=== PATIENT | male | born 1950 | race Caucasian/White ===

== ENCOUNTER → 2025-05-09 09:18 | Outpatient (REF) | payer MEDICARE, OTHER, SELFPAY | LOC: RAD 09:18 | PROVIDERS: ATTENDING PHYSICIAN Specialist; FAMILY PHYSICIAN Family Medicine | DX: N18.32 Chronic kidney disease, stage 3b (principal) | CPT/HCPCS: 76770 ==

== ENCOUNTER 2025-08-09 07:38 | Inpatient (IN) | payer MEDICARE, OTHER, SELFPAY ==
[2025-08-07 16:40] VITALS: BP 204/82
[2025-08-07 18:08] LABS: ALT (SGPT) 18 U/L (0-50); AST (SGOT) 30 U/L (17-59); Albumin 4.7 g/dl (3.5-5.0); Alkaline Phosphatase 61 U/L (38-126); Blood Urea Nitrogen 39 mg/dl (9-20); Calcium 8.9 mg/dl (8.4-10.2); Carbon Dioxide 22 mmol/L (22-30); Chloride 108 mmol/L (98-107); Glucose 118 mg/dl (70-99); Potassium 4.2 mmol/L (3.5-5.1); Sodium 139 mmol/L (135-145); Total Protein 7.6 g/dl (6.3-8.2); eGFR 32.42
--- NOTE | 2025-08-07 18:09 | ED.GENMED ---
History of Present Illness
<Jon Orozco PA-C - Last Filed: 08/07/25 22:00>
General
Chief Complaint: Urinary Symptoms
Time Seen by Provider: 08/07/25 17:22
History of Present Illness
History of Present Illness:
75-year-old male with history of bladder cancer currently in remission (Follows with [facility]) presents for evaluation of hematuria and urinary retention. He underwent a cystoscopy today, I am unable to see any documented results of this
through [facility] chart access. He has a history of MDS with thrombocytopenia, blood thinners.
Review of Systems
<Jon Orozco PA-C - Last Filed: 08/07/25 22:00>
Review of Systems
Allergies reviewed?: Yes
All Other Systems: ROS reviewed and negative except as documented in HPI and ROS
Phy Exam
<Jon Orozco PA-C - Last Filed: 08/07/25 22:00>
Physical Exam
Physical Exam:
GEN: Uncomfortable
HEENT: Oral mucosa moist, no scleral icterus
Cardiac: Regular rate
Lung: No respiratory distress, no tachypnea
MSK: No gross deformity or injuries
Skin: Good color, no pallor or jaundice, no rashes
Neuro: AO x3, moves all extremities freely
Psych: Calm, cooperative
Course
<Jon Orozco PA-C - Last Filed: 08/07/25 22:00>
Orders/Labs/Results
Orders:
Orders
08/07/25 Dinner
Regular
At Your Request: Full Participation
08/07/25 17:39
CBI- Treatment PRN
Solution: NSS
08/07/25 17:47
Type+Screen Urgent
Complete Blood Count/With Diff Urgent
Comprehensive Metabolic Panel Urgent
Manual Differential Urgent
08/07/25 19:34
Admit/Transfer Patient As Directed
Co-Sign Provider:
Level of Care: Observation services
Assign to:: Medical/Surgical
Physician / Group: Heather
Diagnosis: Hematuria
Code Status As Directed
Resuscitation Status: Full Code
PRN Pain Medication Management As Directed
May give lesser potent ordered pain med per pt: Yes
preference::
Protocol:: Medication orders for pain may be administered in a
manner that supports deferring to patient preference
when the pt is:
- Requesting an ordered lesser potent pain medication.
Least to most potent pain medications are defined
as: acetaminophen < NSAID < tramadol < opioids
(morphine, oxycodone, hydromorphone).
- Requesting a lesser dose of the same medication IF
ORDERED.
- Requesting a less intrusive route of administration
if both routes are prescribed by the provider (PO <
IV).
08/07/25 21:28
Acetaminophen [Tylenol] 650 mg PO Q4HPRN PRN
Bisacodyl [Dulcolax] 10 mg RECTAL [id number] PRN
Docusate W/Senna [Senokot-S] 1 tablet PO BIDPRN PRN
Ondansetron Injectable [Zofran] 4 mg IV Q6HPRN PRN
Oxycodone [Roxicodone] 5 mg PO Q4HPRN PRN
Polyethylene Glycol Powder [Miralax] 17 grams PO DAILYPRN PRN
Valsartan [Diovan] 160 mg PO BID
08/07/25 21:28
UROLOGY CONSULT Routine
Consulting Provider: Bassem Ghotra
Was physician already notified: Yes
Activity As Directed
Activity Level: As Tolerated
Pneumatic Compression Sleeves As Directed
Type: Knee high
Vital Signs As Directed
Frequency: Per unit guidelines
Pulse Ox/spot Check [RESP] Routine
Quantity: 1
DX Deep Vein Thrombosis Video Routine
08/08/25 06:00
Basic Metabolic Panel IN AM
Complete Blood Count/No Diff IN AM
Magnesium IN AM
08/08/25 08:00
Loratadine [Claritin] 10 mg PO DAILY
Rosuvastatin Calcium [Crestor] 40 mg PO DAILY
Abnormal Lab Results
08/07/25
17:47
RBC 3.06 L 10^6/uL
(4.70-6.10)
Hgb 8.2 L g/dL
(13.0-18.0)
Hct 25.8 L %
(39.0-52.0)
MCH 26.8 L pg
(27.0-31.0)
MCHC 31.8 L g/dL
(33.0-37.0)
RDW 18.2 H %
(11.5-14.5)
Plt Count 49 L 10^3/uL
(130-400)
Monocytes (Manual) 25 H %
(2-9)
Chloride 108 H mmol/L
(98-107)
BUN 39 H mg/dl
(9-20)
Creatinine 2.1 H mg/dL
(0.7-1.3)
Glucose 118 H mg/dl
(70-99)
08/07/25 17:47
08/07/25 17:47
Vital Signs
Initial and Last Documented VS:
Initial Vital Signs
Temp Pulse Resp BP Pulse Ox
97.7 F 84 18 204/82 100
08/07/25 16:40 08/07/25 16:40 08/07/25 16:40 08/07/25 16:40 08/07/25 16:40
Last Documented Vital Signs
Temp Pulse Resp BP Pulse Ox
97.7 F 65 16 175/76 100
08/07/25 21:15 08/07/25 21:15 08/07/25 21:15 08/07/25 21:15 08/07/25 21:15
<Artie Lazcano, DO - Last Filed: 08/07/25 18:16>
Orders/Labs/Results
Orders:
Orders
08/07/25 Dinner
Regular
At Your Request: Full Participation
08/07/25 17:39
CBI- Treatment PRN
Solution: NSS
08/07/25 17:47
Type+Screen Urgent
Complete Blood Count/With Diff Urgent
Comprehensive Metabolic Panel Urgent
Manual Differential Urgent
08/07/25 19:34
Admit/Transfer Patient As Directed
Co-Sign Provider:
Level of Care: Observation services
Assign to:: Medical/Surgical
Physician / Group: Heather
Diagnosis: Hematuria
Code Status As Directed
Resuscitation Status: Full Code
PRN Pain Medication Management As Directed
May give lesser potent ordered pain med per pt: Yes
preference::
Protocol:: Medication orders for pain may be administered in a
manner that supports deferring to patient preference
when the pt is:
- Requesting an ordered lesser potent pain medication.
Least to most potent pain medications are defined
as: acetaminophen < NSAID < tramadol < opioids
(morphine, oxycodone, hydromorphone).
- Requesting a lesser dose of the same medication IF
ORDERED.
- Requesting a less intrusive route of administration
if both routes are prescribed by the provider (PO <
IV).
08/07/25 21:28
Acetaminophen [Tylenol] 650 mg PO Q4HPRN PRN
Bisacodyl [Dulcolax] 10 mg RECTAL [id number] PRN
Docusate W/Senna [Senokot-S] 1 tablet PO BIDPRN PRN
Ondansetron Injectable [Zofran] 4 mg IV Q6HPRN PRN
Oxycodone [Roxicodone] 5 mg PO Q4HPRN PRN
Polyethylene Glycol Powder [Miralax] 17 grams PO DAILYPRN PRN
Valsartan [Diovan] 160 mg PO BID
08/07/25 21:28
UROLOGY CONSULT Routine
Consulting Provider: Bassem Ghotra
Was physician already notified: Yes
Activity As Directed
Activity Level: As Tolerated
Pneumatic Compression Sleeves As Directed
Type: Knee high
Vital Signs As Directed
Frequency: Per unit guidelines
Pulse Ox/spot Check [RESP] Routine
Quantity: 1
DX Deep Vein Thrombosis Video Routine
08/08/25 06:00
Basic Metabolic Panel IN AM
Complete Blood Count/No Diff IN AM
Magnesium IN AM
08/08/25 08:00
Loratadine [Claritin] 10 mg PO DAILY
Rosuvastatin Calcium [Crestor] 40 mg PO DAILY
Abnormal Lab Results
08/07/25
17:47
RBC 3.06 L 10^6/uL
(4.70-6.10)
Hgb 8.2 L g/dL
(13.0-18.0)
Hct 25.8 L %
(39.0-52.0)
MCH 26.8 L pg
(27.0-31.0)
MCHC 31.8 L g/dL
(33.0-37.0)
RDW 18.2 H %
(11.5-14.5)
Plt Count 49 L 10^3/uL
(130-400)
Monocytes (Manual) 25 H %
(2-9)
Chloride 108 H mmol/L
(98-107)
BUN 39 H mg/dl
(9-20)
Creatinine 2.1 H mg/dL
(0.7-1.3)
Glucose 118 H mg/dl
(70-99)
08/07/25 17:47
08/07/25 17:47
Vital Signs
Initial and Last Documented VS:
Initial Vital Signs
Temp Pulse Resp BP Pulse Ox
97.7 F 84 18 204/82 100
08/07/25 16:40 08/07/25 16:40 08/07/25 16:40 08/07/25 16:40 08/07/25 16:40
Last Documented Vital Signs
Temp Pulse Resp BP Pulse Ox
97.7 F 65 16 175/76 100
08/07/25 21:15 08/07/25 21:15 08/07/25 21:15 08/07/25 21:15 08/07/25 21:15
<Jon Orozco PA-C - Last Filed: 08/07/25 22:00>
MDM/Problems Addressed
MDM/Problems Addressed:
Due to his known thrombocytopenia we will start him on CBI and admitted to the hospital service for urologic evaluation
<Jon Orozco PA-C - Last Filed: 08/07/25 22:00>
*Pulse Oximetry
SaO2: 100
Oxygen Mode of Delivery: Room air
Patient hypoxic: no
*Critical Care Note
Total Time (30-74mins, 75-104mins- exclusive of procedures): Not Applicable
ED Attending Note
<Jon Orozco PA-C - Last Filed: 08/07/25 22:00>
-
Portions of this chart may have been created with voice recognition software.� Occasional wrong word or��sound alike� substitutions may have occurred due to the inherent limitations of voice recognition software.
<Artie Lazcano DO - Last Filed: 08/07/25 18:16>
ED Attending Note
Patient seen and examined by attending physician: Yes
I performed the substantive portion of visit, reviewed & personally made and approve the management plan that is documented in note by myself or PAUL.: Yes
ED Attending Note:
75-year-old male bladder cancer MDS followed [facility] previously followed at [facility] had a cystoscopy today now is in clot retention plan will be labs three-way with CBI
Discharge Plan
Departure
Patient Disposition: Admit
Date of Disposition: 08/07/25
Time of Disposition: 18:56
Admit to: Med/Surg
Presentation/result/management discussed w/ accepting MD/DO: Hospitalist
Discharge Problem:
Clot retention of urine
Interventions
Interventions:
*Risk Screen - Suicide Last Done: 08/07/25 16:40
*General Assessment Last Done: 08/07/25 16:40
*Neglect/Abuse Screening Last Done: 08/07/25 19:20
*ED- Fall Risk Assessment Last Done: 08/07/25 19:20
*ED COVID-19 Vaccine History Last Done: 08/07/25 19:20
*ED Influenza Vaccine History Last Done: 08/07/25 19:20
*Nursing Disposition Last Done: 08/07/25 21:26
ED-Male Genitourinary Assessment Last Done: 08/07/25 18:34
Discharge Date and Time
Discharge Date/Time: 08/07/25 21:29
[2025-08-07 18:38] LABS: Hematocrit 25.8 % (39.0-52.0); Hemoglobin 8.2 g/dL (13.0-18.0); Mean Corp Hgb Conc. 31.8 g/dL (33.0-37.0); Mean Corpuscular Volume 84.3 fL (80.0-94.0); Platelet Count 49 10^3/uL (130-400); Red Cell Dist. Width 18.2 % (11.5-14.5)
[2025-08-07 18:39] LABS: Absolute Neutrophils -Man Diff 3.4 10^3/uL (1.4-6.5); Normal RBC Morphology No; Platelets Checked Yes
[2025-08-07 18:40] LABS: Anisocytosis 1+; Hypochromasia 1+; Macrocytosis 1+
[2025-08-07 18:41] LABS: Microcytosis 1+
[2025-08-07 18:43] LABS: Stomatocytes Occasional; Total Cells Counted 100
--- NOTE | 2025-08-07 19:09 | HPS.HSE ---
Family Physician
-
Family Physician: Bibiana George
Chief Complaint
-
Hematuria
History of Present Illness
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
Patient with history of bladder cancer on routine surveillance every 6 months. He has MDS with thrombocytopenia. He did receive 2 units of platelets prior to procedure 2 days ago due to his blood counts being in the 20s. He reported that he
underwent routine cystoscopy and prior to cystoscopy was not having any symptoms. After cystoscopy he returned home and started having difficulty with urination. He noticed that he was passing clots and then some blood. He reported pelvic
discomfort as well as dysuria. Denies having any fevers or chills. Denies any nausea or vomiting.
Patient has had several cystoscopies in the past and has had recurrent episodes of hematuria requiring continuous bladder irrigation in the past.
In the emergency department was hypertensive to 200/80, pulse rate of 84 and he was satting 100% on room air. He was afebrile. CBC notable for hemoglobin of 8.2, platelet count 49, electrolytes were all in normal range. BUN and creatinine were 39
and 2.1 (unknown baseline) glucose 118.
Medical History
Past Medical History
Past Medical History: Reports CAD, Cancer (Bladder cancer 2019, in remission, chronic thrombocytopenia secondary to MDS), HTN, Hypercholesterolemia and Psychiatric (Anxiety)
Past Surgical History: Reports Appendectomy and Urological (TURBT,)
Social History
Tobacco: Non-smoker
Alcohol: None
Drug: None
Personal:
Living: With Family
Employment: Retired
Family History
Family History: Not pertinent
Allergies / Home Medications
Allergies reflects when Allergies were last updated in [employer].
Home Medications with original date entered in [employer]
Allergy/Medication List:
Allergies
Allergy/AdvReac Type Severity Reaction Status Date / Time
lisinopril Allergy Unknown Verified 08/07/25 16:42
Valsartan 160 MG 1 tablet Orally twice a day Active
Gladis Allergy 180 MG 1 tablet Swallow whole with water; do not take with fruit juices. Orally Once a day Active
Fexofenadine HCl 180 MG 1 tablet Swallow whole with water; do not take with fruit juices. Orally Once a day Not-Taking/PRN
Tamsulosin HCl 0.4 MG 1 capsule Orally Once a day Not-Taking/PRN
Nasacort AQ 55 mcg nasal 2 sprays daily Active
Other Misc Opcon A Eye Allergy - 1-2 drops in each eye daily Active
Cranberry Extract 250 MG 2 tablets (500mg) Orally twice daily Active
Rosuvastatin Calcium 40 MG 1 tablet Orally Once a day Active
Famotidine 40 MG 1 tablet at bedtime Orally Once a day Pepcid Not-Taking/PRN
Pumpkin Seed Oil - as directed Orally 1000mg 2 caps in am and 1 cap with dinner Active
Review of Systems
-
History Source: Patient
Constitutional: Reports No Symptoms
EENT: Reports No Symptoms
Respiratory: Reports No Symptoms
Cardiac: Reports No Symptoms
Abdomen/GI: Reports No Symptoms
: Reports Dysuria and Bleeding (Passing clots)
Musculoskeletal: Reports No Symptoms
Skin: Reports No Symptoms
Neurological: Reports No Symptoms
Endocrine: Reports No Symptoms
Hematologic/Lymphatic: Reports No Symptoms
Psych: Reports No Symptoms
Physical Exam
Vital Signs
Vital Signs
Temp Pulse Resp BP Pulse Ox
97.7 F 84 18 204/82 100
08/07/25 16:40 08/07/25 16:40 08/07/25 16:40 08/07/25 16:40 08/07/25 18:09
Physical Exam
General: Well Developed, Well Nourished and No Apparent Distress
HEENT: NormoCephalic, Moist mucous membranes and Atraumatic
Respiratory: Clear
Cardiac: S1/S2 and Regular Rhythm; No Murmur or Rub
GI: Soft, Non Tender, Non Distended and Normal Bowel Sounds; No Organomegaly
Rectal: Deferred by Provider
Genito-urinary: Bloody Urine and Continuous Bladder Irrigation
Musculoskeletal: No Clubbing, No Cyanosis and No Edema
Skin: No Rash
Neuro: AO x 3 and Nonfocal/grossly intact
Hematologic/Lymphatic: No Lymphadenopathy
Laboratory Results
-
08/07/25 17:47
08/07/25 17:47
Laboratory Results
Total Bilirubin 0.8 mg/dl (0.2-1.3) 08/07/25 17:47
AST 30 U/L (17-59) 08/07/25 17:47
ALT 18 U/L (0-50) 08/07/25 17:47
Alkaline Phosphatase 61 U/L (38-126) 08/07/25 17:47
Data Reviewed
-
Lab Data: Labs Reviewed by me
Old Records: Reviewed
Impression/Plan
-
IMPRESSION:
75-year-old with history of bladder cancer currently in remission and on getting urine cystoscopy, MDS who is transfusion dependent for thrombocytopenia as well as anemia, hypertension and hyperlipidemia presents to the emergency department
following a routine 6-month cystoscopy with post procedure clot retention. He denies any fevers or chills. He denies any flank pain. Patient labs shows a stable hemoglobin compared to prior in June. He is also shows a stable creatinine of 2.1.
His platelet count is 49. He currently is on continuous bladder irrigation with punch colored output.
PLAN:
Hematuria -postprocedure complicated by history of thrombocytopenia, patient is not on any thinners or antiplatelet agents. He is currently comfortable on CBI
-Admit to MedSurg observation
-Monitor output
-Obtain urine culture and UA afebrile
-No thinners
-Urology consulted with
Thrombocytopenia -secondary to MDS with recent transfusion of platelets preprocedure for platelet count of around 26. Currently blood count is 49.
-Type and screen
-Transfuse for platelets less than 40 if still having hematuria
-Transfuse hemoglobin less than 7
CKD -creatinine 2.1 is at his baseline
-Follow-up creatinine
-Avoid nephrotoxins
Hypertension
-Well-controlled on valsartan, continue
-Continue rosuvastatin
DVT prophylaxis�SCDs
CODE STATUS�full code
[2025-08-07 19:25] VITALS: BP 149/76
[2025-08-07 19:28] VITALS: BMI 24.4
[2025-08-07 20:00] VITALS: BP 149/58
[2025-08-07 20:47] VITALS: BP 148/58
[2025-08-07 21:15] VITALS: BP 175/76; BMI 23.2
--- NOTE | 2025-08-07 22:00 | PTCARENOTE ---
Pt transported from ED to 3W via stretcher. Pt independent from stretcher to bed. AAOX3, vitals stable, oriented to room and call clark within reach.
[2025-08-07] MEDS: DIOVAN 160 MG PO (22:45)
[2025-08-07 23:00] VITALS: BP 154/67
[2025-08-08] VITALS (9 sets, daily range): BP systolic 129–165; BP diastolic 57–68
[2025-08-08] MEDS: ROXICODONE 5 MG PO ×2 (03:56→07:57)
[2025-08-08 06:33] LABS: Hematocrit 23.1 % (39.0-52.0); Hemoglobin 7.3 g/dL (13.0-18.0); Mean Corp Hgb Conc. 31.6 g/dL (33.0-37.0); Mean Corpuscular Volume 84.0 fL (80.0-94.0); Platelet Count 39 10^3/uL (130-400); Red Cell Dist. Width 18.4 % (11.5-14.5)
[2025-08-08 06:49] LABS: Blood Urea Nitrogen 32 mg/dl (9-20); Calcium 8.7 mg/dl (8.4-10.2); Carbon Dioxide 23 mmol/L (22-30); Chloride 111 mmol/L (98-107); Estimated Creatinine Clearance 34 ml/min; Glucose 103 mg/dl (70-99); Magnesium 1.8 mg/dl (1.6-2.3); Potassium 4.1 mmol/L (3.5-5.1); Sodium 141 mmol/L (135-145); eGFR 36.56
[2025-08-08] MEDS: CLARITIN 10 MG PO (07:56)
[2025-08-08] MEDS: DIOVAN 160 MG PO ×2 (07:56→20:35)
[2025-08-08] MEDS: CRESTOR 40 MG PO (07:56)
--- NOTE | 2025-08-08 09:44 | W.PN.HOSP.TC ---
Addendum entered and electronically signed by Chay Sagastume DO 08/08/25 10:04:
I reviewed records from [facility] via remote [facility] access.
Hemoglobin was noted to be 9.2 on 08/06 morning with subsequent hemoglobin down to 7.2 later the same day.
Platelet count was noted to be 36,000 on 08/06.
Today hemoglobin is 7.3, platelet count 39,000.
Will transfuse 1 unit of PRBCs, 1 unit of platelets. Patient agreeable.
Acute blood loss anemia in the setting of chronic anemia due to MDS. Acute blood loss anemia due to gross hematuria.
Original Note:
Today's Communication/Plan
-
CBI
Urology consult
Check previous blood work from [facility]
Assessment / Plan
Assessment / Plan
Gen-AAOx3, NAD
HEENT-NC, AT, anicteric, clear oral mm
Neck-supple
CV-reg, no M, +S1/S2
Lungs-clear B/L
Abd-soft, NT, ND
Ext-no edema
Musculoskeletal-no cyanosis, clubbing
Skin-warm and dry
Neuro-grossly non-focal
Psych-calm, cooperative
Gross hematuria -postprocedural clot retention complicated by thrombocytopenia exacerbated bleeding.
Patient underwent cystoscopy 08/07 at [facility], Dr. Lazaro.
Currently getting CBI as per urology.
MDS with anemia, thrombocytopenia -will try to access [facility] chart to review previous labs. Anticipate platelet transfusion given counts below 50,000 in light of hematuria.
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
CKD 3b -creatinine 1.9, suspect at baseline. Will try to review labs from [facility].
Essential hypertension -pressures are elevated, recheck after valsartan.
Hx bladder cancer -diagnosed and treated in 2019.
CAD -stable.
Hyperlipidemia -rosuvastatin.
Full code
Anticipated Discharge: > 48 hours
Subjective/Interval History
-
Date of Service: August 08, 2025
Patient seen and examined, no complaints.
Objective Data
-
Labs:
Laboratory Results
08/08/25
06:13
WBC 9.8
Hgb 7.3 L
Hct 23.1 L
Plt Count 39 L D
Sodium 141
Potassium 4.1
Chloride 111 H
Carbon Dioxide 23
BUN 32 H
Creatinine 1.9 H
Glucose 103 H
Calcium 8.7
Vital Signs:
Vital Signs
Temp Pulse Resp BP Pulse Ox
97.7 F 59 16 165/68 100
08/08/25 07:20 08/08/25 07:56 08/08/25 07:20 08/08/25 07:56 08/08/25 07:20
I&O
08/07/25 08/08/25 08/09/25
06:59 06:59 06:59
Output Total 900 / 900 1000 / 1000
Balance -900 / -900 -1000 / -1000
Review of Systems
-
History Source: Patient
All other systems: Reviewed and negative
--- NOTE | 2025-08-08 10:29 | CM ---
Patient seen at bedside
IA Completed
AMARAL form explained & signed. In chart
Patient lives with in 2 story home, 12 steps to bed/bath, powder room 1st floor
PLOF: independent, no assistive device
DME: Walker, wheelchair, cane
Denies VN, has had outpatient therapy in past
pcp: Bibiana George
Pharmacy: [facility], [address], [place]
PLAN: home, when stable, CM to follow for VN needs
--- NOTE | 2025-08-08 13:39 | PTCARENOTE ---
Message received from Urologist this shift with orders to switch out patient's 3 way jacinto cath from [address] See flowchart. Patient tolerated well - draining punch tinged urine. Patient reports relief after new jacinto is
irrigated and in place. Multiple clots irrigated out of new jacinto. Plan of care ongoing.
--- NOTE | 2025-08-08 17:15 | CONS.URO ---
Consultation
-
Date/Time Consultation Performed: 0800 08/08
Performing Provider: Jurgenfer
Reason for Consultation: Hematuria
Medical History
History of Present Illness
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
Patient with history of bladder cancer on routine surveillance every 6 months. He has MDS with thrombocytopenia. He did receive 2 units of platelets prior to cystoscopy 2 days ago due to his blood counts being in the 20s. He reported that he
underwent routine cystoscopy and prior to cystoscopy was not having any symptoms. After cystoscopy he returned home and started having difficulty with urination. He noticed that he was passing clots and then some blood. He reported pelvic
discomfort as well as dysuria. Denies having any fevers or chills. Denies any nausea or vomiting.
Patient has had several cystoscopies in the past and has had recurrent episodes of hematuria requiring continuous bladder irrigation in the past at [facility]
In the emergency department was hypertensive to 200/80, pulse rate of 84 and he was satting 100% on room air. He was afebrile. CBC notable for hemoglobin of 8.2, platelet count 49, electrolytes were all in normal range. BUN and creatinine were 39
and 2.1 (unknown baseline) glucose 118.
Past Medical History
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
Past Surgical History: Other (TURBT)
Social History
Alcohol: None
Drug: None
Family History
Family History: Reviewed & Not Pertinent
Allergies/Home Medications
Allergies
Allergy/AdvReac Type Severity Reaction Status Date / Time
lisinopril Allergy Unknown Verified 08/07/25 16:42
Home Medications
�Medication �Instructions �Recorded �Confirmed �Type
[employer] Capsule 1 cap PO BID Gastrointestinal Issue 08/07/25 08/07/25 History
cranberry 500 mg capsule 500 mg PO DAILY Supplement 08/07/25 08/07/25 History
fexofenadine 180 mg tablet 180 mg PO DAILY Allergies 08/07/25 08/07/25 History
pumpkin seed extract 500 mg capsule 1,000 mg PO BID Supplement 08/07/25 08/07/25 History
rosuvastatin 40 mg tablet (Crestor) 40 mg PO DAILY cholesterol 08/07/25 08/07/25 History
valsartan 160 mg tablet 160 mg PO BID Blood Pressure 08/07/25 08/07/25 History
Physical Exam
Vital Signs
Vital Signs
Temp Pulse Resp BP Pulse Ox
98.1 F 61 16 133/57 98
08/08/25 15:00 08/08/25 15:00 08/08/25 15:00 08/08/25 15:00 08/08/25 15:00
Lab / Testing Results
Laboratory Results
08/08/25 06:13
08/08/25 06:13
Physical Exam
General: Well Developed, Well Nourished and No Apparent Distress
GI: Soft
Genito-urinary: No Costovertebral Tend, Bloody Urine and Moreno Catheter
Neuro: AO x 3
Psych: Calm and Intact Judgement
Assessment / Plan
-
75M with chronic thrombocytopenia
History of bladder cancer managed at [facility]
History of hospital admissions for hematuria following his surveillance cystoscopy, admitted for hematuria and clot retention after surveillance cystoscopy
- Transfuse blood and platelets as needed
- Continue CBI, upsize catheter to 22Fr 3 way
- Hand irrigate PRN
- Trend hematuria. May need procedure intervention if no improvement
[2025-08-09 07:00] VITALS: BP 135/57
[2025-08-09 07:09] LABS: Hematocrit 24.8 % (39.0-52.0); Hemoglobin 7.9 g/dL (13.0-18.0); Mean Corp Hgb Conc. 31.9 g/dL (33.0-37.0); Mean Corpuscular Volume 83.8 fL (80.0-94.0); Platelet Count 61 10^3/uL (130-400); Red Cell Dist. Width 18.0 % (11.5-14.5)
[2025-08-09] MEDS: CRESTOR 40 MG PO (07:42)
[2025-08-09] MEDS: CLARITIN 10 MG PO (07:42)
[2025-08-09] MEDS: DIOVAN 160 MG PO ×2 (07:42→20:57)
[2025-08-09 08:07] LABS: Blood Urea Nitrogen 30 mg/dl (9-20); Calcium 8.9 mg/dl (8.4-10.2); Carbon Dioxide 24 mmol/L (22-30); Chloride 111 mmol/L (98-107); Estimated Creatinine Clearance 32 ml/min; Glucose 95 mg/dl (70-99); Potassium 4.3 mmol/L (3.5-5.1); Sodium 141 mmol/L (135-145); eGFR 34.38
[2025-08-09 08:33] LABS: Absolute Neutrophils -Man Diff 3.2 10^3/uL (1.4-6.5)
[2025-08-09 08:34] LABS: Normal RBC Morphology Yes; Platelets Checked Yes; Total Cells Counted 100
--- NOTE | 2025-08-09 08:55 | W.PN.HOSP.TC ---
Today's Communication/Plan
-
Continue current care
Assessment / Plan
Assessment / Plan
Gen-AAOx3, NAD
HEENT-NC, AT, anicteric, clear oral mm
Neck-supple
CV-reg, no M, +S1/S2
Lungs-clear B/L
Abd-soft, NT, ND
Ext-no edema
Musculoskeletal-no cyanosis, clubbing
Skin-warm and dry
Neuro-grossly non-focal
Psych-calm, cooperative
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 Acute blood loss anemia due to hematuria.
Transfused 1 unit PRBC so far, hemoglobin improved to 7.9 today. Continue to monitor.
Gross hematuria -postprocedural clot retention complicated by thrombocytopenia exacerbated bleeding.
Patient underwent cystoscopy 08/07 at [facility], Dr. Lazaro.
Currently getting CBI as per urology.
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
CKD 3b -creatinine at baseline, 2.0.
Essential hypertension -stable.
Hx bladder cancer -diagnosed and treated in 2018.
CAD -stable.
Hyperlipidemia -rosuvastatin.
Full code
Anticipated Discharge: Within 24 hours
Subjective/Interval History
-
Date of Service: August 09, 2025
Patient seen and examined, no complaints.
Objective Data
-
Labs:
Laboratory Results
08/09/25
06:46
WBC 9.6
Hgb 7.9 L
Hct 24.8 L
Plt Count 61 L D
Sodium 141
Potassium 4.3
Chloride 111 H
Carbon Dioxide 24
BUN 30 H
Creatinine 2.0 H
Glucose 95
Calcium 8.9
Vital Signs:
Vital Signs
Temp Pulse Resp BP Pulse Ox
98.1 F 59 17 135/57 98
08/09/25 07:00 08/09/25 07:42 08/09/25 07:00 08/09/25 07:42 08/09/25 07:00
I&O
08/08/25 08/09/25 08/10/25
06:59 06:59 06:59
Intake Total 496 / 496
Output Total 900 / 900 5950 / 5950 3575 / 3575
Balance -900 / -900 -5454 / -5454 -3575 / -3575
Review of Systems
-
History Source: Patient
All other systems: Reviewed and negative
--- NOTE | 2025-08-09 09:10 | W.PN.URO.CBU ---
Today's Communication / Plan
-
Trend hematuria on CBI
Assessment / Plan
-
75M with chronic thrombocytopenia
History of bladder cancer managed at [place]
History of hospital admissions for hematuria following his surveillance cystoscopy, admitted for hematuria and clot retention after surveillance cystoscopy
- Transfuse blood and platelets as needed
- Continue CBI, upsized catheter to 22Fr 3 way
- Irrigated this AM with minimal clot but persistent hematuria
- Hand irrigate PRN
- Trend hematuria. May need procedure intervention if no improvement. Per patient, prior attempts to stop bleeding with cystoscopy and fulguration were not very successful. Will prefer to avoid surgical intervention
Diagnosis
-
Date of Service: August 09, 2025
-
Patient Diagnosis:
Bladder cancer
Thrombocytopenia
Gross hematuria
Post Op Day:
Subjective
-
Some clots overnight a few times
Objective
-
Vital Signs
Temp Pulse Resp BP Pulse Ox
98.1 F 59 17 135/57 98
08/09/25 07:00 08/09/25 07:42 08/09/25 07:00 08/09/25 07:42 08/09/25 07:00
Intake and Output
08/08/25 08/09/25 08/10/25
06:59 06:59 06:59
Intake Total 496 / 496
Output Total 900 / 900 5950 / 5950 3575 / 3575
Balance -900 / -900 -5454 / -5454 -3575 / -3575
Intake:
Blood Product Amount Infused ( 496 / 496
mL)
Packed Rbc Leukoreduced Unit 250 / 250
[id number]
Pathogen Redu Plt Leukored 246 / 246
Unit [id number]
Output:
True Urine Output from CBI 900 / 900
True urine output from hand 5950 / 5950 3575 / 3575
irrigation
Laboratory Results
08/09/25 06:46
08/09/25 06:46
Physical Exam
-
General - well developed, well nourished, no acute distress
Chest - clear
Abdomen - soft, non-tender
Moreno with clear pink urine on medium CBI
Skin - warm & dry with no rash
Neuro - AOx3, no motor deficits
--- NOTE | 2025-08-09 10:40 | CM ---
Patient seen at bedside
LOC change to inpatient-IMM explained & signed. In chart
PLAN: home, when stable, CM to continue to follow, watch for VN needs
[2025-08-09 15:00] VITALS: BP 128/63
[2025-08-09 23:00] VITALS: BP 129/58
[2025-08-10 07:25] VITALS: BP 132/61
[2025-08-10 07:53] LABS: Hematocrit 23.1 % (39.0-52.0); Hemoglobin 7.4 g/dL (13.0-18.0); Mean Corp Hgb Conc. 32.0 g/dL (33.0-37.0); Mean Corpuscular Volume 83.4 fL (80.0-94.0); Platelet Count 52 10^3/uL (130-400); Red Cell Dist. Width 17.7 % (11.5-14.5)
[2025-08-10 08:15] LABS: Absolute Neutrophils -Man Diff 5.9 10^3/uL (1.4-6.5); Anisocytosis 1+; Hypochromasia 1+; Normal RBC Morphology No; Platelets Checked Yes; Total Cells Counted 100
[2025-08-10] MEDS: CLARITIN 10 MG PO (08:26)
[2025-08-10] MEDS: DIOVAN 160 MG PO ×2 (08:26→20:19)
[2025-08-10] MEDS: CRESTOR 40 MG PO (08:27)
--- NOTE | 2025-08-10 09:06 | W.PN.HOSP.TC ---
Today's Communication/Plan
-
Monitor hematuria
Bowel regimen
Monitor CBC
Assessment / Plan
Assessment / Plan
Gen-AAOx3, NAD
HEENT-NC, AT, anicteric, clear oral mm
Neck-supple
CV-reg, no M, +S1/S2
Lungs-clear B/L
Abd-soft, NT, ND
Ext-no edema
Musculoskeletal-no cyanosis, clubbing
Skin-warm and dry
Neuro-grossly non-focal
Psych-calm, cooperative
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 Acute blood loss anemia due to hematuria.
Transfused 1 unit PRBC so far, hemoglobin improved to 7.9 yesterday, 7.4 today. Monitor for now.
Gross hematuria -postprocedural clot retention complicated by thrombocytopenia exacerbated bleeding.
Patient underwent cystoscopy 08/07 at [facility], Dr. Lazaro.
Currently getting CBI as per urology.
MDS with anemia, thrombocytopenia -His video news editor/oncologist is at [facility].
Thrombocytopenia improved to 61,000 with 1 unit of platelets. Today it is 52,000. Monitor for now.
CKD 3b -creatinine at baseline, 2.0.
Constipation -bowel regimen ordered.
Essential hypertension -stable.
Hx bladder cancer -diagnosed and treated in 2018.
CAD -stable.
Hyperlipidemia -rosuvastatin.
Full code
Anticipated Discharge: 24 - 48 hours
Subjective/Interval History
-
Date of Service: August 10, 2025
Patient seen and examined. Complaining of constipation.
Objective Data
-
Labs:
Laboratory Results
08/10/25
07:05
WBC 9.9
Hgb 7.4 L
Hct 23.1 L
Plt Count 52 L
Vital Signs:
Vital Signs
Temp Pulse Resp BP Pulse Ox
98.6 F 61 17 132/61 98
08/10/25 07:25 08/10/25 08:26 08/10/25 07:25 08/10/25 08:26 08/10/25 07:25
I&O
08/09/25 08/10/25 08/11/25
06:59 06:59 06:59
Intake Total 496 / 496 940 / 940
Output Total 5950 / 5950 6625 / 6625 5050 / 5050
Balance -5454 / -5454 -5685 / -5685 -5050 / -5050
Review of Systems
-
History Source: Patient
All other systems: Reviewed and negative
--- NOTE | 2025-08-10 11:42 | CM ---
Patient seen at bedside
CBI-monitoring hematuria
PLAN: anticipate home, when stable, watch for VN needs, CM to continue to follow
--- NOTE | 2025-08-10 13:10 | W.PN.URO.CBU ---
Today's Communication / Plan
-
Trend hematuria
Continue CBI
TXA
Assessment / Plan
-
75M with chronic thrombocytopenia
History of bladder cancer managed at [facility]
History of hospital admissions for hematuria following his surveillance cystoscopy, admitted for hematuria and clot retention after surveillance cystoscopy
- Transfuse blood and platelets as needed
- Continue CBI, upsized catheter to 22Fr 3 way
- Hand irrigate PRN
- Trend hematuria
- IV tranexamic acid to help stop bleeding
- May need procedure intervention if no improvement. Per patient, prior attempts to stop bleeding with cystoscopy and fulguration were not very successful. Will prefer to avoid surgical intervention
Diagnosis
-
Date of Service: August 10, 2025
-
Patient Diagnosis:
Bladder cancer
Thrombocytopenia
Gross hematuria
Post Op Day:
Subjective
-
Persistent hematuria
Some clots
Objective
-
Vital Signs
Temp Pulse Resp BP Pulse Ox
98.6 F 61 17 132/61 98
08/10/25 07:25 08/10/25 08:26 08/10/25 07:25 08/10/25 08:26 08/10/25 10:44
Intake and Output
08/09/25 08/10/25 08/11/25
06:59 06:59 06:59
Intake Total 496 / 496 940 / 940
Output Total 5950 / 5950 6625 / 6625 5050 / 5050
Balance -5454 / -5454 -5685 / -5685 -5050 / -5050
Intake:
Oral fluids 940 / 940
Blood Product Amount Infused ( 496 / 496
mL)
Packed Rbc Leukoreduced Unit 250 / 250
[id number]
Pathogen Redu Plt Leukored 246 / 246
Unit [id number]
Output:
True Urine Output from CBI 1650 / 1650 5050 / 5050
True urine output from hand 5950 / 5950 4975 / 4975
irrigation
Laboratory Results
08/10/25 07:05
08/09/25 06:46
Physical Exam
-
General - well developed, well nourished, no acute distress
Chest - clear bilaterally
Abdomen - soft, non-tender, positive bowel sounds, no CVAT, no incisional pain or distention
Moreno with intermittent red urine on CBI
[2025-08-10] MEDS: TRANEXAMIC ACID 100 IV (14:28)
[2025-08-10 14:56] VITALS: BP 121/56
[2025-08-10] MEDS: SENOKOT-S 1 TABLET PO (20:18)
[2025-08-10 22:59] VITALS: BP 119/58
[2025-08-11] VITALS (9 sets, daily range): BP systolic 127–142; BP diastolic 53–64
[2025-08-11 08:02] LABS: Hematocrit 22.0 % (39.0-52.0); Hemoglobin 7.0 g/dL (13.0-18.0); Mean Corp Hgb Conc. 31.8 g/dL (33.0-37.0); Mean Corpuscular Volume 84.0 fL (80.0-94.0); Platelet Count 47 10^3/uL (130-400); Red Cell Dist. Width 17.8 % (11.5-14.5)
--- NOTE | 2025-08-11 08:44 | W.PN.URO.CBU ---
Today's Communication / Plan
-
TXA
Trial of void
OR tomorrow if clot obstruction recurs
Assessment / Plan
-
75M with chronic thrombocytopenia
History of bladder cancer managed at [place]
History of hospital admissions for hematuria following his surveillance cystoscopy, admitted for hematuria and clot retention after surveillance cystoscopy
- Transfuse blood and platelets as needed
- Hematuria improved with minimal bleeding on CBI overnight
- Redose tranexamic acid this AM with jacinto removal
- Encouraged hydration to avoid clots
- OR tomorrow if trial of void not successful
Diagnosis
-
Date of Service: August 11, 2025
-
Patient Diagnosis:
Bladder cancer
Thrombocytopenia
Gross hematuria
Post Op Day:
Subjective
-
hematuria improved overnight
Objective
-
Vital Signs
Temp Pulse Resp BP Pulse Ox
97.9 F 61 14 127/59 100
08/11/25 08:08 08/11/25 08:08 08/11/25 08:08 08/11/25 08:08 08/11/25 08:08
Intake and Output
08/10/25 08/11/25 08/12/25
06:59 06:59 06:59
Intake Total 940 / 940
Output Total 6625 / 6625 9550 / 9550 2750 / 2750
Balance -5685 / -5685 -9550 / -9550 -2750 / -2750
Intake:
Oral fluids 940 / 940
Output:
True Urine Output from CBI 1650 / 1650 9550 / 9550 2750 / 2750
True urine output from hand 4975 / 4975
irrigation
Laboratory Results
08/11/25 06:22
10/01/25 06:46
Physical Exam
-
General - well developed, well nourished, no acute distress
Chest - clear bilaterally
Abdomen - soft, non-tender
Red urine with CBI clamped
[2025-08-11] MEDS: DIOVAN 160 MG PO ×2 (08:49→20:40)
[2025-08-11] MEDS: MIRALAX 17 GRAMS PO (08:49)
[2025-08-11] MEDS: CLARITIN 10 MG PO (08:50)
[2025-08-11] MEDS: CRESTOR 40 MG PO (08:50)
[2025-08-11] MEDS: SENOKOT-S 1 TABLET PO (08:50)
[2025-08-11] MEDS: TRANEXAMIC ACID 100 IV (09:58)
--- NOTE | 2025-08-11 11:06 | W.PN.HOSP.TC ---
Today's Communication/Plan
-
Voiding trial per urology
Ambulate
Transfuse
Assessment / Plan
Assessment / Plan
Gen-AAOx3, NAD
HEENT-NC, AT, anicteric, clear oral mm
Neck-supple
CV-reg, no M, +S1/S2
Lungs-clear B/L
Abd-soft, NT, ND
Ext-no edema
Musculoskeletal-no cyanosis, clubbing
Skin-warm and dry
Neuro-grossly non-focal
Psych-calm, cooperative
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 Acute blood loss anemia due to hematuria.
Hemoglobin down to 7.0, platelets 47,000. Will transfuse second unit of PRBC and platelets.
Gross hematuria -postprocedural clot retention complicated by thrombocytopenia exacerbated bleeding.
Patient underwent cystoscopy 08/07 at [facility], Dr. Lazaro.
Currently getting CBI as per urology.
Received a dose of IV tranexamic acid yesterday and today per urology.
Trial of voiding today as per urology. If hematuria persists then likely will need to go to the OR.
MDS with anemia, thrombocytopenia -His pbx manager/oncologist is at [facility].
CKD 3b -creatinine at baseline, 2.0.
Constipation -bowel regimen ordered.
Essential hypertension -stable.
Hx bladder cancer -diagnosed and treated in 2018.
CAD -stable.
Hyperlipidemia -rosuvastatin.
Full code
Ambulate today with nursing.
Anticipated Discharge: > 48 hours
Subjective/Interval History
-
Date of Service: August 11, 2025
Patient seen and examined, motivated to get out of bed and walk. Denies pain.
Objective Data
-
Labs:
Laboratory Results
08/11/25
06:22
WBC 9.7
Hgb 7.0 L
Hct 22.0 L
Plt Count 47 L
Vital Signs:
Vital Signs
Temp Pulse Resp BP Pulse Ox
97.9 F 61 14 127/59 100
08/11/25 08:08 08/11/25 08:49 08/11/25 08:08 08/11/25 08:49 08/11/25 08:08
I&O
08/10/25 08/11/25 08/12/25
06:59 06:59 06:59
Intake Total 940 / 940
Output Total 6625 / 6625 9550 / 9550 2750 / 2750
Balance -5685 / -5685 -9550 / -9550 -2750 / -2750
Review of Systems
-
History Source: Patient
All other systems: Reviewed and negative
--- NOTE | 2025-08-11 11:25 | PTCARENOTE ---
CBI output=clots and bright red blood, urology order to remove catheter, urology tiger texted photo of Moreno output bag to inquire if this RN should still discontinue catheter.
--- NOTE | 2025-08-11 11:32 | CM ---
Patient seen at bedside
per urology - OR tomorrow if trial of void not successful
hgb 7.0
PLAN: home, CM will follow for VN needs
[2025-08-11 11:46] LABS: Absolute Neutrophils -Man Diff 4.0 10^3/uL (1.4-6.5)
[2025-08-11 11:48] LABS: Anisocytosis 2+; Hypochromasia 1+; Normal RBC Morphology No; Platelets Checked Yes
[2025-08-11 12:33] LABS: Total Cells Counted 100
--- NOTE | 2025-08-11 12:43 | PTCARENOTE ---
Urology instructed this RN to remove CBI catheter.
--- NOTE | 2025-08-11 13:00 | PTCARENOTE ---
1 unit of PRBC started as ordered. Pt resting in bed comfortably, no signs or symptoms of reaction. Will continue to monitor.
--- NOTE | 2025-08-11 15:55 | PTCARENOTE ---
1 unit of platelets started as ordered. Pt resting in bed comfortably. No signs or symptoms of reaction. Will continue to monitor.
[2025-08-11] MEDS: D5/0.45%NACL 1000 IV (20:41)
[2025-08-11] MEDS: SENOKOT-S PO (20:44)
[2025-08-12] VITALS (9 sets, daily range): BP systolic 103–159; BP diastolic 50–76
--- NOTE | 2025-08-12 03:10 | PTCARENOTE ---
Patient c/o increasing painful urinary urgency, unable to pass urine. Patient finding that even with standing at bedside or sitting on toilet that he is only able to pass drops of dark burgundy bloody urine. Patient getting agitated with pain and
discomfort. Notified TORI Hartmann, requested to check bladder scan and to provide dose of pyridium to patient -- obtained and provided, see MAR. Patient increasingly more uncomfortable, tearful. Bladder scan showing 359mls at highest scan. RETAIL PH[employer]Y MANAGER
ordered 3-way to be inserted, and CBI to be restarted. Orders obtained, 3-way inserted and patient initiated on CBI. Irrigated after placement with passage of 2 large clots. Patient still in significant pain and pressure, and pain to tip of penis.
Provided patient PRN dose oxycodone - see MAR. Relief from PRNs and following start of CBI, patient appreciative and appears to be comfortable in bed at this time. AM labs requested early by RETAIL PHARMACY MANAGER -- obtained and sent to lab, awaiting results of H&H.
Call clark in reach, will continue to monitor.
[2025-08-12] MEDS: D5/0.45%NACL 1000 IV ×2 (03:15→18:10)
[2025-08-12] MEDS: ROXICODONE 5 MG PO (04:05)
[2025-08-12 04:48] LABS: Hematocrit 24.1 % (39.0-52.0); Hemoglobin 7.8 g/dL (13.0-18.0); Mean Corp Hgb Conc. 32.4 g/dL (33.0-37.0); Mean Corpuscular Volume 84.6 fL (80.0-94.0); Platelet Count 45 10^3/uL (130-400); Red Cell Dist. Width 17.1 % (11.5-14.5)
[2025-08-12 04:50] LABS: Blood Urea Nitrogen 32 mg/dl (9-20); Calcium 8.9 mg/dl (8.4-10.2); Carbon Dioxide 21 mmol/L (22-30); Chloride 107 mmol/L (98-107); Estimated Creatinine Clearance 32 ml/min; Glucose 132 mg/dl (70-99); Potassium 3.8 mmol/L (3.5-5.1); Sodium 138 mmol/L (135-145); eGFR 34.38
--- NOTE | 2025-08-12 07:15 | PTCARENOTE ---
CBI infusing upon walking rounds with nightshift RN, urologist made aware of catheter placement. Urologist informed this RN pt to go to OR today.
[2025-08-12] MEDS: SENOKOT-S PO ×2 (08:03→20:16)
[2025-08-12] MEDS: DIOVAN 160 MG PO ×2 (08:03→21:00)
[2025-08-12] MEDS: MIRALAX PO (08:03)
[2025-08-12] MEDS: CRESTOR 40 MG PO (08:04)
[2025-08-12] MEDS: CLARITIN 10 MG PO (08:04)
[2025-08-12 10:38] LABS: Absolute Neutrophils -Man Diff 5.2 10^3/uL (1.4-6.5); Anisocytosis 1+; Hypochromasia 1+; Normal RBC Morphology No; Platelets Checked Yes; Total Cells Counted 100
--- NOTE | 2025-08-12 11:04 | W.PN.HOSP.TC ---
Today's Communication/Plan
-
OR today
Assessment / Plan
Assessment / Plan
Gen-AAOx3, NAD
HEENT-NC, AT, anicteric, clear oral mm
Neck-supple
CV-reg, no M, +S1/S2
Lungs-clear B/L
Abd-soft, NT, ND
Ext-no edema
Musculoskeletal-no cyanosis, clubbing
Skin-warm and dry
Neuro-grossly non-focal
Psych-calm, cooperative
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 Acute blood loss anemia due to hematuria.
Hemoglobin relatively stable at 7.8 today. Has had 2 units of PRBCs transfused so far.
Gross hematuria -postprocedural clot retention complicated by thrombocytopenia exacerbated bleeding.
Patient underwent cystoscopy 08/07 at [facility], Dr. Lazaro.
Currently getting CBI as per urology.
Received 2 doses of IV tranexamic acid.
Currently n.p.o., awaiting cystoscopy today.
MDS with anemia, thrombocytopenia -His rn clinical documentation/oncologist is at [facility].
Has had 2 units of platelets transfused so far. Platelet count 45,000 today.
CKD 3b -creatinine at baseline, 2.0.
Constipation -bowel regimen ordered.
Essential hypertension -stable.
Hx bladder cancer -diagnosed and treated in 2018.
CAD -stable.
Hyperlipidemia -rosuvastatin.
Full code
Updated patient's at the bedside.
Anticipated Discharge: > 48 hours
Subjective/Interval History
-
Date of Service: August 12, 2025
Patient seen and examined. Feeling frustrated over hematuria. No complaints.
Objective Data
-
Labs:
Laboratory Results
08/12/25
04:16
WBC 10.4
Hgb 7.8 L
Hct 24.1 L
Plt Count 45 L
Sodium 138
Potassium 3.8
Chloride 107
Carbon Dioxide 21 L
BUN 32 H
Creatinine 2.0 H
Glucose 132 H
Calcium 8.9
Vital Signs:
Vital Signs
Temp Pulse Resp BP Pulse Ox
97.8 F 67 17 147/64 100
08/12/25 07:00 08/12/25 08:03 08/12/25 07:00 08/12/25 08:03 08/12/25 07:00
I&O
08/11/25 08/12/25 08/13/25
06:59 06:59 06:59
Intake Total 3056 / 3056
Output Total 9550 / 9550 4600 / 4600 1020 / 1020
Balance -9550 / -9550 -1544 / -1544 -1020 / -1020
Review of Systems
-
History Source: Patient
All other systems: Reviewed and negative
[2025-08-12] MEDS: SUBLIMAZE 25 MCG IV (13:17)
--- NOTE | 2025-08-12 13:55 | PTCARENOTE ---
Received pt from OR via bed. Will initiate post op vital signs. Pt c/o lower abdominal pain. CBI infusing, urine yellow and clear. at bedside. AAOx3, drowsy.
--- NOTE | 2025-08-12 15:19 | W.PN.URO.CBU ---
Today's Communication / Plan
-
- Transfuse blood and platelets as needed
- Trend hematuria s/p resection and fulguration
- Trial of void tomorrow AM if urine clear
Assessment / Plan
-
75M with chronic thrombocytopenia
History of bladder cancer managed at [place]
History of hospital admissions for hematuria following his surveillance cystoscopy, admitted for hematuria and clot retention after surveillance cystoscopy
s/p OR 08/12/25 for cystoscopy, clot evacuation, TURBT, fulguration
Surprisingly given his recent office cystoscopy at [place], there were several suspicious papillary lesions around the bladder neck and prostatic urethra which were resected
- Transfuse blood and platelets as needed
- Trend hematuria s/p resection and fulguration
- Trial of void tomorrow AM if urine clear
Diagnosis
-
Date of Service: August 12, 2025
-
Patient Diagnosis:
Bladder cancer
Thrombocytopenia
Gross hematuria
Post Op 08/12 cystoscopy, clot evacuation, TURBT, fulguration
Subjective
-
-
Objective
-
Vital Signs
Temp Pulse Resp BP Pulse Ox
97.5 F 66 17 159/76 100
08/12/25 15:00 08/12/25 15:00 08/12/25 15:00 08/12/25 15:00 08/12/25 15:00
Intake and Output
08/11/25 08/12/25 08/13/25
06:59 06:59 06:59
Intake Total 3056 / 3056 75 / 75
Output Total 9550 / 9550 4600 / 4600 1570 / 1570
Balance -9550 / -9550 -1544 / -1544 -1495 / -1495
Intake:
Oral fluids 1020 / 1020
IV fluids (Total) 1500 / 1500 75 / 75
normosol 75 / 75
IV piggybacks 20 / 20
Blood Product Amount Infused ( 516 / 516
mL)
Packed Rbc Leukoreduced Unit 250 / 250
[id number]
Pathogen Redu Plt Leukored 266 / 266
Unit [id number]
Output:
Urine, Voided 800 / 800
True Urine Output from CBI 9550 / 9550 3800 / 3800 1570 / 1570
Laboratory Results
08/12/25 04:16
08/12/25 04:16
Physical Exam
-
General - well developed, well nourished, no acute distress
Chest - clear
Moreno - red urine
--- NOTE | 2025-08-12 15:21 | PTCARENOTE ---
Pt c/o bladder MD sharon made aware, new order provided, see MAR.
[2025-08-12] MEDS: DETROL LA 4 MG PO (15:28)
--- NOTE | 2025-08-12 20:00 | PTCARENOTE ---
Assumed care of patient from previous RN, CBI running and maintained. Appears to be clear with blood tinge and orange in color. S/p pyridium. Patient is s/p cystoscopy today, sleeping during rounding. Patient seen after rounds, states he feels great
tonight, no c/o pain, no urinary pain or pressure. Resting comfortably at this time, call clark in reach, will monitor.
[2025-08-13] VITALS (12 sets, daily range): BP systolic 117–138; BP diastolic 48–71
[2025-08-13 07:10] LABS: Hematocrit 21.0 % (39.0-52.0); Hemoglobin 6.7 g/dL (13.0-18.0); Mean Corp Hgb Conc. 31.9 g/dL (33.0-37.0); Mean Corpuscular Volume 85.4 fL (80.0-94.0); Platelet Count 35 10^3/uL (130-400); Red Cell Dist. Width 17.1 % (11.5-14.5)
[2025-08-13] MEDS: D5/0.45%NACL IV (07:48)
[2025-08-13] MEDS: CRESTOR 40 MG PO (08:22)
[2025-08-13] MEDS: DIOVAN 160 MG PO ×2 (08:22→21:02)
[2025-08-13] MEDS: CLARITIN 10 MG PO (08:22)
[2025-08-13] MEDS: SENOKOT-S PO ×2 (08:23→21:02)
[2025-08-13] MEDS: MIRALAX PO (08:23)
[2025-08-13 09:51] LABS: Absolute Neutrophils -Man Diff 4.3 10^3/uL (1.4-6.5)
[2025-08-13 09:52] LABS: Anisocytosis +1; Normal RBC Morphology No; Platelets Checked YES
[2025-08-13 09:54] LABS: Hypochromasia +1; Target Cells +1
[2025-08-13 09:56] LABS: Total Cells Counted 100
--- NOTE | 2025-08-13 13:46 | W.PN.HOSP.TC ---
Today's Communication/Plan
-
Transfuse PRBCs
Transfuse platelets
CBC in the morning
Ambulate
Assessment / Plan
Assessment / Plan
Gen-AAOx3, NAD
HEENT-NC, AT, anicteric, clear oral mm
Neck-supple
CV-reg, no M, +S1/S2
Lungs-clear B/L
Abd-soft, NT, ND
Ext-no edema
Musculoskeletal-no cyanosis, clubbing
Skin-warm and dry
Neuro-grossly non-focal
Psych-calm, cooperative
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 Acute blood loss anemia due to gross hematuria.
Hemoglobin unfortunately dropped to 6.7 today. Plan to transfuse 2 units PRBCs today.
Gross hematuria -postprocedural clot retention complicated by thrombocytopenia exacerbated bleeding.
Patient underwent cystoscopy 08/07 at [facility], Dr. Lazaro.
Received 2 doses of IV tranexamic acid.
Cystoscopy done 08/12 showing hematuria, bladder clot, bladder neck and prostatic urethral tumors. Underwent clot evacuation, fulguration of bladder and transurethral resection of bladder and prostatic urethral tumors.
Urine now looks light pinkish in color. Hemodynamically stable today.
MDS with anemia, thrombocytopenia -His measuring machine tender/oncologist is at [facility].
Has had 2 units of platelets transfused so far. Platelet count 35,000 today. Will transfuse 1 unit of platelets today.
Patient interested in following up with hematology at our hospital.
CKD 3b -creatinine at baseline, 2.0.
Constipation -bowel regimen ordered. Last BM 08/12.
Essential hypertension -stable.
Hx bladder cancer -diagnosed and treated in 2019.
CAD -stable.
Hyperlipidemia -rosuvastatin.
Full code
Anticipated Discharge: Within 24 hours
Subjective/Interval History
-
Date of Service: August 13, 2025
Patient seen and examined, states he feels fine, no complaints.
Objective Data
-
Labs:
Laboratory Results
08/13/25
05:38
WBC 9.7
Hgb 6.7 L*
Hct 21.0 L
Plt Count 35 L D
Vital Signs:
Vital Signs
Temp Pulse Resp BP Pulse Ox
97.6 F 75 18 136/60 100
08/13/25 13:27 08/13/25 13:27 08/13/25 13:27 08/13/25 13:27 08/13/25 13:38
I&O
08/12/25 08/13/25 08/14/25
06:59 06:59 06:59
Intake Total 3056 / 3056 2035 / 2035 0 / 0
Output Total 4600 / 4600 3770 / 3770
Balance -1544 / -1544 -1735 / -1735 0 / 0
Review of Systems
-
History Source: Patient
All other systems: Reviewed and negative
--- NOTE | 2025-08-13 13:46 | W.PN.URO.CBU ---
Today's Communication / Plan
-
- Transfuse blood and platelets as needed
- Trend hematuria s/p resection and fulguration
- Trial of void today given little to no hematuria overnight
Assessment / Plan
-
75M with chronic thrombocytopenia
History of bladder cancer managed at [place]
History of hospital admissions for hematuria following his surveillance cystoscopy, admitted for hematuria and clot retention after surveillance cystoscopy
s/p OR 08/12/25 for cystoscopy, clot evacuation, TURBT, fulguration
Surprisingly given his recent office cystoscopy at [place], there were several suspicious papillary lesions around the bladder neck and prostatic urethra which were resected
- Transfuse blood and platelets as needed
- Trend hematuria s/p resection and fulguration
- Trial of void today given little to no hematuria overnight
Diagnosis
-
Date of Service: August 13, 2025
-
Patient Diagnosis:
Bladder cancer
Thrombocytopenia
Gross hematuria
Post Op 08/12 cystoscopy, clot evacuation, TURBT, fulguration
Subjective
-
No bleeding overnight
Objective
-
Vital Signs
Temp Pulse Resp BP Pulse Ox
97.6 F 75 18 136/60 100
08/13/25 13:27 08/13/25 13:27 08/13/25 13:27 08/13/25 13:27 08/13/25 13:38
Intake and Output
08/12/25 08/13/25 08/14/25
06:59 06:59 06:59
Intake Total 3056 / 3056 2034 0 / 0
Output Total 4600 / 4600 3770 / 3770
Balance -1544 / -1544 -1735 / -1735 0 / 0
Intake:
Oral fluids 1020 / 1020 960 / 960
IV fluids (Total) 1500 / 1500 1075 / 1075
normosol 75 / 75
IV piggybacks 20 / 20
Blood Product Amount Infused ( 516 / 516 0 / 0
mL)
Packed Rbc Leukoreduced Unit 250 / 250
[id number]
Pathogen Redu Plt Leukored 266 / 266
Unit [id number]
Pathogen Redu Plt Leukored 0 / 0
Unit [id number]
Output:
Urine, Voided 800 / 800
True Urine Output from CBI 3800 / 3800 3770 / 3770
Laboratory Results
08/13/25 05:38
08/12/25 04:16
Physical Exam
-
General - well developed, well nourished, no acute distress
Chest - clear bilaterally
jacinto clear urine on CBI
--- NOTE | 2025-08-13 19:42 | PTCARENOTE ---
MD ordered to remove patient's jacinto and discontinue CBI. See flowsheet for CBI report. Jacinto removed around 183. Pt tolerated well. Patient voided 150 without difficulty, burning or pain around 1930. Plan of care ongoing.
[2025-08-14 07:00] VITALS: BP 124/61
[2025-08-14 07:26] LABS: Hematocrit 26.8 % (39.0-52.0); Hemoglobin 8.8 g/dL (13.0-18.0); Mean Corp Hgb Conc. 32.8 g/dL (33.0-37.0); Mean Corpuscular Volume 86.5 fL (80.0-94.0); Platelet Count 41 10^3/uL (130-400); Red Cell Dist. Width 16.6 % (11.5-14.5)
[2025-08-14] MEDS: CRESTOR 40 MG PO (07:44)
[2025-08-14] MEDS: CLARITIN 10 MG PO (07:44)
[2025-08-14] MEDS: DIOVAN 160 MG PO (07:45)
[2025-08-14] MEDS: MIRALAX PO (07:48)
[2025-08-14] MEDS: SENOKOT-S PO (07:48)
--- NOTE | 2025-08-14 08:01 | W.PN.URO.CBU ---
Today's Communication / Plan
-
- Hematuria resolved with no bleeding since jacinto removal
- Stable for discharge from standpoint
- Outpatient follow up - will call
Assessment / Plan
-
75M with chronic thrombocytopenia
History of bladder cancer managed at [facility]
History of hospital admissions for hematuria following his surveillance cystoscopy, admitted for hematuria and clot retention after surveillance cystoscopy
s/p OR 08/12/25 for cystoscopy, clot evacuation, TURBT, fulguration
Surprisingly given his recent office cystoscopy at [facility], there were several suspicious papillary lesions around the bladder neck and prostatic urethra which were resected
- Hematuria resolved with no bleeding since jacinto removal
- Stable for discharge from standpoint
- Outpatient follow up - will call
Diagnosis
-
Date of Service: August 14, 2025
-
Patient Diagnosis:
Bladder cancer
Thrombocytopenia
Gross hematuria
Post Op 08/12 cystoscopy, clot evacuation, TURBT, fulguration
Subjective
-
no hematuria overnight
Objective
-
Vital Signs
Temp Pulse Resp BP Pulse Ox
98.6 F 64 18 124/61 97
08/14/25 07:00 08/14/25 07:45 08/14/25 07:00 08/14/25 07:45 08/14/25 07:00
Intake and Output
08/13/25 08/14/25 08/15/25
06:59 06:59 06:59
Intake Total 2034 1595 / 1595
Output Total 3770 / 3770 5700 / 5700
Balance -1735 / -1735 -4105 / -4105
Intake:
Oral fluids 960 / 960 840 / 840
IV fluids (Total) 1075 / 1075
normosol 75 / 75
Blood Product Amount Infused ( 755 / 755
mL)
Packed Rbc Leukoreduced Unit 250 / 250
[id number]
Packed Rbc Leukoreduced Unit 250 / 250
[id number]
Pathogen Redu Plt Leukored 255 / 255
Unit [id number]
Output:
Urine, Voided 150 / 150
True Urine Output from CBI 3770 / 3770 5550 / 5550
Laboratory Results
08/14/25 06:08
08/12/25 04:16
Physical Exam
-
General - well developed, well nourished, no acute distress
Chest - clear bilaterally
[2025-08-14 08:37] LABS: Absolute Neutrophils -Man Diff 6.0 10^3/uL (1.4-6.5)
[2025-08-14 08:39] LABS: Anisocytosis 1+; Normal RBC Morphology No; Platelets Checked Yes
[2025-08-14 08:40] LABS: Hypochromasia 1+; Total Cells Counted 100
--- NOTE | 2025-08-14 08:44 | W.PN.HOSP.TC ---
Today's Communication/Plan
-
Discharge today
Assessment / Plan
Assessment / Plan
Physical Exam
Gen-AAOx3, NAD
HEENT-NC, AT, anicteric, clear oral mm
Neck-supple
CV-reg, no M, +S1/S2
Lungs-clear B/L
Abd-soft, NT, ND. positive bowel sounds.
Ext-no edema
Musculoskeletal-no cyanosis
Skin-warm and dry
Neuro-grossly non-focal
Psych-calm, cooperative
Assessment/Plan
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 Acute blood loss anemia due to gross hematuria.
Received a total of 4 units of red blood cells this hospitalization.
Gross hematuria -postprocedural clot retention complicated by thrombocytopenia exacerbated bleeding.
Patient underwent cystoscopy 08/07/25 at [facility], Dr. Lazaro.
Received 2 doses of IV tranexamic acid.
Cystoscopy done 08/12 showing hematuria, bladder clot, bladder neck and prostatic urethral tumors. Underwent clot evacuation, fulguration of bladder and transurethral resection of bladder and prostatic urethral tumors.
Urine now looks light pinkish in color. Hemodynamically stable today.
I confirmed with urologist that patient does not need antibiotics on discharge.
Leukocytosis -- patient does not have any signs or symptoms or infection. Follow-up outpatient.
MDS with anemia, thrombocytopenia -His head teacher/oncologist is at [facility].
Received 3 units of platelets this hospitalization.
Patient interested in following up with hematology at our hospital.
CKD 3b -creatinine at baseline, 2.0.
Constipation -bowel regimen ordered. Last BM 08/12.
Essential hypertension -stable.
Hx bladder cancer -diagnosed and treated in 2019.
CAD -stable.
Hyperlipidemia -rosuvastatin.
Full code
More than 30 minutes spent in discharge including
Final examination of the patient
Summarizing hospital stay
Instructions for continuing care to all relevant caregivers
Preparation of discharge records, prescriptions, and referral forms
Total time spent (in minutes): 41
Anticipated Discharge: Today
Subjective/Interval History
-
Date of Service: August 14, 2025
Patient was seen and examined. He denied any symptoms or complaints, and stated that he would like to be discharge from the hospital today.
Objective Data
-
Labs:
Laboratory Results
08/14/25
06:08
WBC 11.7 H
Hgb 8.8 L D
Hct 26.8 L
Plt Count 41 L
Vital Signs:
Vital Signs
Temp Pulse Resp BP Pulse Ox
98.6 F 64 18 124/61 97
08/14/25 07:00 08/14/25 07:45 08/14/25 07:00 08/14/25 07:45 08/14/25 07:00
I&O
08/13/25 08/14/25 08/15/25
06:59 06:59 06:59
Intake Total 2034 1595 / 1595
Output Total 3770 / 3770 5700 / 5700
Balance -1735 / -1735 -4105 / -4105
[2025-08-14 15:00] VITALS: BP 128/60
--- NOTE | 2025-08-14 15:41 | W.DCSUMMARY ---
Discharge Summary
Discharge Data
Date of Admission: 08/07/25
Date of Discharge: 08/14/25
Total time spent discharging patient (in min): 41
-
Pending Results: Yes
Additional Pending Results:
Pathology/Biopsy Results
Hospital Course
75-year-old male with past medical history significant for thrombocytopenia secondary to MDS, bladder cancer in remission, hypertension, hyperlipidemia and chronic kidney disease, presented to the emergency department following cystoscopy with
retained clots. Patient reported that he underwent routine cystoscopy and prior to cystoscopy, he was not having any symptoms; after cystoscopy he had returned home and started having difficulty with urination, and he also noticed that he was
passing clots and then some blood. Patient was started on continuous bladder irrigation. Urology was consulted. Patient received red blood cells and platelets transfusions. Patient received intravenous Tranexamic Acid to help stop the bleeding. On
August 12, 2025, patient had cystoscopy, clot evacuation, fulguration of bladder, transurethral resection of bladder tumor and transurethral resection of prostatic urethral tumor. Patient's Moreno Catheter was removed with no bleeding since the
removal of the Moreno Catheter; his hematuria had resolved. Patient was stable for discharge, and I confirmed with urologist that patient did not need any antibiotics on discharge.
Discharge Plan
-
Patient Disposition: Home (Routine Discharge)
Discharge Diagnosis/Procedures: Acute blood loss anemia - in the setting of chronic anemia due to MDS; acute blood loss anemia due to gross hematuria
Gross hematuria - postprocedural clot retention complicated by thrombocytopenia exacerbated bleeding.
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
Leukocytosis -- patient does not have any signs or symptoms or infection. Follow-up with repeat labs outpatient.
MDS with anemia, thrombocytopenia
CKD 3b
Constipation
Essential hypertension
History of bladder cancer - diagnosed and treated in 2019.
Coronary Artery Disease
Hyperlipidemia
Condition: Good
Diet: As tolerated
Activity: As tolerated
Blood Work: CBC, BMP and Serum Magnesium in 1 to 2 days with your primary care doctor's office
Referrals:
Alissa Motley MD [Active, Oncology] - in one to two weeks
Referral Note: Has Myelodysplastic Syndrome, would like to establish care with hematology in [facility]. Needed red blood cells and platelets transfusion this hospitalization.
Bibiana George MD [Family Provider, Family Practice] - in less than 1 week
Referral Note: Hospitalization Follow-Up
Bassem Ghotra MD [Active, Urology] - in one to two weeks
Referral Note: Hospital Follow-Up
Prescriptions:
New
polyethylene glycol 3350 17 gram Powder In Packet
17 g PO DAILY Qty: 30 0RF
sennosides-docusate sodium [Senna Plus] 8.6-50 mg Tablet
1 tab PO BID Qty: 60 0RF
Continued
valsartan 160 mg Tablet
160 mg PO BID
fexofenadine 180 mg Tablet
180 mg PO DAILY
rosuvastatin [Crestor] 40 mg Tablet
40 mg PO DAILY
pumpkin seed extract 500 mg Capsule
1,000 mg PO BID
[employer] Capsule capsule
1 cap PO BID
Patient Comments:
Chlorella, Susanne (Zingiber officinale), Black [place] Chapa, Slippery Elm (Ulmus rubra), Psyllium Husk, Hyssop (Hyssopus officinalis), Inulin, Papaya (Carica papaya), Aloe Vera, Lycopene, Digestive Health
Elm (Ulmus), Chlorella, Susanne (Zingiber officinale), Black [place] Chapa, Psyllium Husk, Hyssop (Hyssopus officinalis), Inulin, Acai [place], Aloe Vera, Papaya (Carica papaya), Antioxidant, Lycopene
Held
cranberry 500 mg Capsule
500 mg PO DAILY
Hold Instructions: Resume on 08/28/25. Ask your doctor before resuming this medication.
Discharge Orders:
Discharge Patient (As Directed); Ordered 08/14/25
Ordered By: Jaspal Guzmán
Discharge Date and Time
Discharge Date/Time: 08/14/25 16:19
Print Language: KOSOVAN
--- NOTE | 2025-08-14 16:19 | CM ---
Pt cleared for discharge to home today with plan for outpatient office visit with urology.
Plan: Discharge to home with no identified needs.
== END 2025-08-14 16:19 | disposition home or self-care (01) | DRG 988 ==
LOC: 3 WEST ACU 07:38
PROVIDERS: Hospitalist; Physician Assistant; ADMITTING PHYSICIAN Internal Medicine; ATTENDING PHYSICIAN Hospitalist; CONSULT PHYSICIAN Urology; EMERGENCY PHYSICIAN Emergency Medicine; FAMILY PHYSICIAN Family Medicine
PROC: 30233R1 Transfusion of Nonautologous Platelets into Peripheral Vein, Percutaneous Approach (ICD-10-PCS; 2025-08-09)
PROC: 0VB08ZZ Excision of Prostate, Via Natural or Artificial Opening Endoscopic (ICD-10-PCS; 2025-08-12)
PROC: 0T5B8ZZ Destruction of Bladder, Via Natural or Artificial Opening Endoscopic (ICD-10-PCS; 2025-08-12)
PROC: 0TCD8ZZ Extirpation of Matter from Urethra, Via Natural or Artificial Opening Endoscopic (ICD-10-PCS; 2025-08-12)
PROC: 0TBB8ZZ Excision of Bladder, Via Natural or Artificial Opening Endoscopic (ICD-10-PCS; 2025-08-12)
DX: N99.820 Postprocedural hemorrhage of a genitourinary system organ or structure following a genitourinary system procedure (principal); D62 Acute posthemorrhagic anemia; D69.59 Other secondary thrombocytopenia; I12.9 Hypertensive chronic kidney disease with stage 1 through stage 4 chronic kidney disease, or unspecified chronic kidney disease; N18.32 Chronic kidney disease, stage 3b; D46.9 Myelodysplastic syndrome, unspecified
CPT/HCPCS: 80048; 80053; 83735; 85025; 85027; 86850; 86900; 86901; 86920; 88307; 99285; A4300; C1769; P9016; P9073